=== PATIENT | male | born 1985 | race Two or more races ===

== ENCOUNTER 2021-12-23 20:13 | Emergency (ER) | payer MEDICAID ==
[~2021-12-23] VITALS: Ht 175.3 cm; Wt 99.8 kg
[2021-12-23 20:27] VITALS: BP 121/81
== END 2021-12-24 02:32 | disposition left against medical advice (07) ==
LOC: ER 20:13
DX: R68.84 Jaw pain (principal); Z53.21 Procedure and treatment not carried out due to patient leaving prior to being seen by health care provider